=== PATIENT | male | born 1935 | race Caucasian/White ===

== ENCOUNTER → 2016-04-29 | Outpatient (CLI) | payer BC ==
[~2016-04-29] MED LIST: ASPI1TAB83 PO; ATEN-173 PO; ATOR-24 PO; CALC500C70 PO; CHOL100010 PO; ENAL10TA88 PO; ESCI10TA17 PO; LORA-741 PO; MULT-506 PO; OFLO0.3S OPR; OMEG10002 PO; ONDA4TAB4 PO; PRED1SUS3 OR
[2016-04-29 10:52] LABS: HEMATOCRIT 43.1 % (42-52); MEAN CELL VOLUME 93.7 fL (80-100); MEAN CORPUSCULAR HEMOGLOBIN 32.4 pg (25-34); MEAN CORPUSCULAR HGB CONC 34.6 g/dl (32-36); PLATELET COUNT 225 K/uL (130-400); WHITE BLOOD COUNT 7.49 K/uL (4.8-10.8)
[2016-04-29 11:16] LABS: ESTIMATED AVERAGE GLUCOSE 131 mg/dl; HA1C FLAG Normal (Normal)
[2016-04-29 11:24] LABS: ALT/SGPT 36 U/L (12-78); BLOOD UREA NITROGEN 21 mg/dl (7-18); BUN/CREATININE RATIO 17.5 (10-20); CALCIUM 9.1 mg/dl (8.5-10.1); CARBON DIOXIDE 26 mmol/L (21-32); CHLORIDE 105 mmol/L (98-107); CHOLESTEROL 134 mg/dl (0-200); GLUCOSE 106 mg/dl (70-99); POTASSIUM 4.1 mmol/L (3.5-5.1); SODIUM 139 mmol/L (136-145); TRIGLYCERIDES 91 mg/dl (0-150); VERY LOW DENSITY LIPOPROT CALC 18 mg/dl
[2016-04-29 11:32] LABS: ALB/GLOB RATIO 0.9 (0.9-2); ALKALINE PHOSPHATASE 89 U/L (45-117); AST/SGOT 26 U/L (15-37); CHOLESTEROL/HDL RATIO 2.9; HDL CHOLESTEROL 46 mg/dl; LDL CHOLESTEROL CALCULATED 70 mg/dl
== END | disposition home or self-care (01) ==
LOC: C.LABBC 07:16
PROVIDERS: ATTEND Family Medicine
DX: I10 Essential (primary) hypertension (principal); E55.9 Vitamin D deficiency, unspecified; E78.00 Pure hypercholesterolemia, unspecified; R73.03 Prediabetes; R73.09 Other abnormal glucose

== ENCOUNTER → 2016-12-14 | Outpatient (CLI) | payer BC ==
[~2016-12-14] MED LIST changes: +BUPR75TA20 PO; +CHOL1000 PO; +HYDR25TA5 PO; +TADA5TAB11 PO
[2016-12-14 11:03] LABS: BASO % 0.3 %; BASO ABS # 0.02 K/uL (0-0.2); COMPLETE YES; EOS % 3.5 %; IG% 0.1 %; LYMPH % 23.9 %; LYMPH ABS # 1.62 K/uL (1.2-3.4); MEAN CELL VOLUME 91.5 fL (80-100); MEAN CORPUSCULAR HEMOGLOBIN 32.3 pg (25-34); MEAN CORPUSCULAR HGB CONC 35.3 g/dl (32-36); MEAN PLATELET VOLUME 10.6 fL (7.4-10.4); MONO % 10.9 %; NEUT % 61.3 %; PLATELET COUNT 210 K/uL (130-400); RED BLOOD COUNT 4.37 M/uL (4.7-6.1); WHITE BLOOD COUNT 6.78 K/uL (4.8-10.8)
[2016-12-14 11:32] LABS: ALT/SGPT 38 U/L (12-78); AST/SGOT 25 U/L (15-37); BLOOD UREA NITROGEN 26 mg/dl (7-18); BUN/CREATININE RATIO 18.1 (10-20); CALCIUM 8.8 mg/dl (8.5-10.1); CARBON DIOXIDE 26 mmol/L (21-32); CHLORIDE 103 mmol/L (98-107); CREATININE 1.46 mg/dl (0.60-1.40); GLUCOSE 105 mg/dl (70-99); MAGNESIUM 2.1 mg/dl (1.8-2.4); POTASSIUM 4.1 mmol/L (3.5-5.1); SODIUM 135 mmol/L (136-145)
[2016-12-14 11:41] LABS: ALB/GLOB RATIO 0.9 (0.9-2); ALKALINE PHOSPHATASE 97 U/L (45-117); CHOLESTEROL 133 mg/dl (0-200); HDL CHOLESTEROL 45 mg/dl; LDL CHOLESTEROL CALCULATED 70 mg/dl; PROSTATE SPECIFIC ANTIGEN 0.683 ng/ml (0.000-4.000); TRIGLYCERIDES 88 mg/dl (0-150); VERY LOW DENSITY LIPOPROT CALC 18 mg/dl
[2016-12-14 11:44] LABS: RATIO 5.5 mcg/mg (0-30.0)
[2016-12-14 13:28] LABS: ESTIMATED AVERAGE GLUCOSE 131 mg/dl; HA1C FLAG Normal (Normal)
== END | disposition home or self-care (01) ==
LOC: C.LABBC 07:27
PROVIDERS: ATTEND Nurse Practitioner Family
DX: I10 Essential (primary) hypertension (principal); N40.0 Benign prostatic hyperplasia without lower urinary tract symptoms; E78.00 Pure hypercholesterolemia, unspecified; E55.9 Vitamin D deficiency, unspecified; R73.03 Prediabetes

== ENCOUNTER → 2017-01-24 | Outpatient (CLI) | payer BC ==
[~2017-01-24] MED LIST changes: -CHOL100010 PO; -ENAL10TA88 PO; -ESCI10TA17 PO; -OFLO0.3S OPR; -ONDA4TAB4 PO; -PRED1SUS3 OR
--- NOTE | 2017-01-24 17:42 | DIAGNOSTIC IMAGING REPORT ---
MRI OF THE BRAIN WITHOUT CONTRAST CLINICAL HISTORY: R42 [id number] Head ulzkqnR61.9 Gait byannuqgujyN60.19 ringing sensation COMPARISON STUDY: None. FINDINGS: Sagittal T1, axial diffusion, proton density and T2 weighted axial, coronal FLAIR, and axial T1-weighted images were acquired. No intra or extra-axial mass lesions are visualized Axial diffusion-weighted images reveal no evidence of acute or subacute infarction. There is no evidence of ventricular dilatation. Proton density T2-weighted and FLAIR images reveal scattered foci of increased T2 signal within the white matter, likely on a small vessel basis. There are no abnormal flow voids. IMPRESSION: 1. No acute intracranial findings 2. No evidence of intracranial mass on this noncontrast study 3. No evidence of acute or subacute infarction 4. Age-related involutional changes Electronically signed by: Feroz Camp M.D. 01/24/2017 5:41 PM Dictated Date/Time: 01/24/2017 5:39 PM
== END | disposition home or self-care (01) ==
LOC: C.MRIBC 16:38
PROVIDERS: ATTEND Nurse Practitioner Family
DX: H93.19 Tinnitus, unspecified ear (principal); R42 Dizziness and giddiness; R26.9 Unspecified abnormalities of gait and mobility; S09.90XA Unspecified injury of head, initial encounter; X58.XXXA Exposure to other specified factors, initial encounter

== ENCOUNTER → 2017-06-13 | Outpatient (CLI) | payer BC ==
[2017-06-13 11:35] LABS: HEMOGLOBIN A1C 6.4 % (4.5-5.6)
[2017-06-13 11:40] LABS: ALBUMIN 3.7 gm/dl (3.4-5.0); ALKALINE PHOSPHATASE 104 U/L (45-117); ALT/SGPT 44 U/L (12-78); AST/SGOT 30 U/L (15-37); BLOOD UREA NITROGEN 21 mg/dl (7-18); CALCIUM 9.5 mg/dl (8.5-10.1); CARBON DIOXIDE 29 mmol/L (21-32); CHOLESTEROL 138 mg/dl (0-200); CREATININE 1.27 mg/dl (0.60-1.40); GLUCOSE 118 mg/dl (70-99); LDL CHOLESTEROL CALCULATED 67 mg/dl; POTASSIUM 3.4 mmol/L (3.5-5.1); SODIUM 134 mmol/L (136-145); TOTAL PROTEIN 7.5 gm/dl (6.4-8.2)
== END | disposition home or self-care (01) ==
LOC: C.LABBC 07:06
PROVIDERS: ATTEND Family Medicine
DX: I10 Essential (primary) hypertension (principal); E78.00 Pure hypercholesterolemia, unspecified; R73.03 Prediabetes